=== PATIENT | male | born 1960 | race African-American/Black ===

== ENCOUNTER 2018-04-25 10:43 | Day surgery (SDC) | payer OTHER ==
[~2018-04-25] VITALS: Ht 172.7 cm; Wt 120.2 kg
[2018-04-25] VITALS (12 sets, daily range): BP systolic 112–131; BP diastolic 74–95
--- NOTE | 2018-04-25 07:06 | Pre-Procedure Note/Attestation ---
Pre-Procedure Note/Attestation Complete Prior to Procedure Planned Procedure: right Procedure Narrative: rt knee scope, medial meniscectomy and chondroplasty Indications for Procedure Pre-Operative Diagnosis: rt knee medial meniscus tear Attestation I attest that I discussed the nature of the procedure; its benefits; risks and complications; and alternatives (and the risks and benefits of such alternatives ), prior to the procedure, with the patient (or the patient's legal truck sales representative). I attest that, if there was a reasonable possibility of needing a blood transfusion, the patient (or the patient's legal truck sales representative) was given the [facility] standardized written summary, pursuant to the Karsten Isidra Blood Safety Act ([place] Health and Safety Code # 1645, as amended). I attest that I re-evaluated the patient just prior to the surgery and that there has been no change in the patient's H&P, except as documented below: none Meet Frank MD Apr 25, 2018 07:06
[~2018-04-25 10:43] MED LIST: ceFAZolin 1gm IVPB IVPB ONE; celeBREX 200mg Cap **SURGERY PATIENTS ONLY ORAL ONE; oxyCONTIN 20mg tab ORAL ONE
[2018-04-25] MEDS ORDERED: TERAZOSIN HCL5 MG PO (11:23)
[2018-04-25] MEDS ORDERED: PRAVASTATIN SOD20 M1 ORAL (11:23)
[2018-04-25] MEDS ORDERED: ASPIRIN81 MG ORAL (11:23)
[2018-04-25] MEDS ORDERED: BENAZEPRIL HCL10 MG ORAL (11:23)
[2018-04-25] MEDS ORDERED: celeBREX 200mg Cap **SURGERY PATIENTS ONLY ORAL ONE (11:34)
[2018-04-25] MEDS ORDERED: oxyCONTIN 20mg tab ORAL ONE (11:34)
[2018-04-25] MEDS ORDERED: LR 1000ml 1,000 ML IVLG SCH (12:46)
--- NOTE | 2018-04-25 12:52 | Anethesia Preoperative Eval ---
Anesthesia Pre-op PMH/ROS General Date of Evaluation: Apr 25, 2018 Time of Evaluation: 13:36 Anesthesiologist: Adarsh ASA Score: ASA 3 Mallampati Score Class I : Soft palate, uvula, fauces, pillars visible Class II: Soft palate, uvula, fauces visible Class III: Soft palate, base of uvula visible Class IV: Only hard plate visible Mallampati Classification: Class III Surgeon: Monika Diagnosis: R Knee Pain Surgical Procedure: R Knee Arthroscopy Anesthesia History: none Family History: no anesthesia problems Allergies: Coded Allergies: No Known Allergies (Unverified , 04/19/18) Medications: see eMAR Patient NPO?: Yes Past Medical History Cardiovascular: Reports: HTN, other - HL Other: obesity - BMI 43 PSxH Narrative: Appendectomy Anesthesia Pre-op Phys. Exam Physician Exam Last Vital Signs Date Time Temp Pulse Resp B/P (MAP) Pulse Ox O2 Delivery O2 Flow Rate FiO2 04/25/18 11:42 97.5 62 18 131/88 97 Room Air Constitutional: NAD Neurologic: CN 2-12 intact Cardiovascular: RRR Respiratory: CTA Gastrointestinal: S/NT/ND Airway Exam Mallampati Score: Class III MO: limited ROM: limited Teeth: missing, intact Anesthesia Pre-op A/P Risk Assessment & Plan Assessment: ASA 3 Plan: GA, SED Status Change Before Surgery: No Pre-Antibiotics Dru Grams Ancef IV Given Within 1 Hr of Incision: Yes Time Given: 13:41 Christophe Zamora MD Apr 25, 2018 12:52
--- NOTE | 2018-04-25 12:53 | Immediate Post-Op Evaluation ---
Immediate Post-Op Evalulation Immediate Post-Op Evalulation Procedure: R Knee Arthroscopy Date of Evaluation: Apr 25, 2018 Time of Evaluation: 14:37 IV Fluids: 600 LR Blood Products: 0 Estimated Blood Loss: 3 Urinary Output: 0 Blood Pressure Systolic: 112 Blood Pressure Diastolic: 78 Pulse Rate: 78 Respiratory Rate: 16 O2 Sat by Pulse Oximetry: 94 Temperature (Fahrenheit): 97.1 Pain Score (1-10): 2 Nausea: No Vomiting: No Complications 0 Patient Status: awake, reacts, patent, none Hydration Status: adequate Dru Gram Ancef IV Given Within 1 Hr of Incision: Yes Time Given: 13:41 Christophe Zamora MD Apr 25, 2018 12:53
--- NOTE | 2018-04-25 12:54 | 48 Hour Post Anesthesia Eval ---
Post Anesthesia Evaluation Procedure: R Knee Arthroscopy Date of Evaluation: Apr 25, 2018 Time of Evaluation: 16:43 Blood Pressure Systolic: 124 0: 74 Pulse Rate: 66 Respiratory Rate: 18 Temperature (Fahrenheit): 97.5 O2 Sat by Pulse Oximetry: 97 Airway: patent Nausea: No Vomiting: No Pain Intensity: 2 Hydration Status: adequate Cardiopulmonary Status: Stable Mental Status/LOC: patient returned to baseline Follow-up Care/Observations: 0 Post-Anesthesia Complications: 0 Follow-up care needed: ready to discharge Christophe Zamora MD Apr 25, 2018 12:53
[2018-04-25] MEDS ORDERED: Propofol 200mg/20ml IV ONE (12:59)
[2018-04-25] MEDS ORDERED: Sodium Chloride 10ml vial INJ ONE (12:59)
[2018-04-25] MEDS ORDERED: Lidocaine 1% MPF 10mg/ml 5ml ONE (12:59)
[2018-04-25] MEDS ORDERED: Dexamethasone 4mg/ml vial ONE (12:59)
[2018-04-25] MEDS ORDERED: Atropine Sulfate 0.4mg/ml inj IVP PRN (13:00)
[2018-04-25] MEDS ORDERED: HYDROcodone/Acetamin 7.5/325 tab ORAL PRN (13:00)
[2018-04-25] MEDS ORDERED: Meperidine 50mg/ml Inj(FOR RIGORS ONLY) IVP PRN (13:00)
[2018-04-25] MEDS ORDERED: DiphenhydrAMINE 50mg/ml Inj IVP PRN (13:00)
[2018-04-25] MEDS ORDERED: fentaNYL 100 mcg/2 mL IV PRN (13:00)
[2018-04-25] MEDS ORDERED: Metoclopramide 10mg/2ml Inj IVP PRN (13:00)
[2018-04-25] MEDS ORDERED: LORazepam Inj 2mg/ml 1ml IV PRN (13:00)
[2018-04-25] MEDS ORDERED: Norco 5mg/325mg tab ORAL PRN ×2 (13:00→20:01)
[2018-04-25] MEDS ORDERED: Ketorolac 30mg Inj IV PRN ×2 (13:00)
[2018-04-25] MEDS ORDERED: Midazolam 2mg/2ml Inj IVP PRN (13:00)
[2018-04-25] MEDS ORDERED: Acetaminophen (Non formulary) 100 ML IV ONE (13:00)
[2018-04-25] MEDS ORDERED: Hydromorphone 0.5mg/0.5ml inj IVP PRN (13:00)
[2018-04-25] MEDS ORDERED: oxyCODONE HCL/Acetaminophen 5/325mg ORAL PRN (13:00)
[2018-04-25] MEDS ORDERED: fentaNYL 100 mcg/2 mL IV ONE (13:06)
[2018-04-25] MEDS ORDERED: Ropivacaine 5mg/ml Vial 30ml INJ ONE (13:23)
[2018-04-25] MEDS ORDERED: NS Irrig 4000ml IRRIG ONE (13:36)
[2018-04-25] MEDS ORDERED: LR 1000ml ONE (13:36)
--- NOTE | 2018-04-25 14:09 | Brief Operative Note ---
Immediate Post Operative Note Operative Note Chief Complaint: rt knee pain Pre-op Diagnosis: rt knee medial meniscus tear Procedure: rt knee scope, medial meniscectomy, chondroplasty Post-op Diagnosis: same as pre-op Findings: consistent w/pre-op dx studies Surgeon: md sunday Qualitative Field Project Manager: shantell diane Anesthesiologist: md lee Anesthesia: general Specimen: none Complications: none Condition: stable Fluids: ns Estimated Blood Loss: minimal Drains: none Implant(s) used?: No Adenike Diane Apr 25, 2018 14:09
[2018-04-25] MEDS ORDERED: Tylenol #3 tab (300mg/30mg) ORAL PRN (20:01)
[2018-04-25] MEDS ORDERED: D5 1/2NS 1,000 ML IV SCH (20:01)
[2018-04-25] MEDS ORDERED: HYDROmorphone 1mg/ml Carpuject SUBQ PRN (20:01)
--- NOTE | 2018-04-26 02:15 | Operative Note - Dictated ---
DATE OF OPERATION: 04/25/2018 PREOPERATIVE DIAGNOSIS: Right knee complex tear of the posterior horn and body of the medial meniscus. POSTOPERATIVE DIAGNOSES: 1. Right knee 8 x 10 mm chondral damage of the central trochlear groove with some unstable chondral flaps. 2. Right knee free edge tear of the posterior horn and body of the lateral meniscus involving 15% of the lateral meniscus. 3. Right knee complex tear of the posterior horn and body of the medial meniscus involving 35% posterior horn and body of the medial meniscus. 4. Right knee diffuse chondral damage over the medial femoral condyle and tibial plateau measuring 2 x 3 cm on the femoral side and 1 x 1 cm on the tibial side. PROCEDURE: 1. Right knee arthroscopy and extensive intra-articular shaving. 2. Right knee patellofemoral chondroplasty with resection of unstable and loose chondral flaps. 3. Right knee partial lateral meniscectomy involving 15% of the lateral meniscus. 4. Right knee partial medial meniscectomy involving 35% posterior horn and body of the medial meniscus. 5. Right knee medial femoral chondroplasty. 6. Right knee resection of multiple loose fragments of cartilage that was floating around the knee. SURGEON: Meet Frank M.D. AUTOMATION ENGINEER: Adenike Clay PA-C. ANESTHESIOLOGIST: Christophe Zamora M.D. ANESTHESIA: LMA anesthesia. TOURNIQUET TIME: 25 minutes. EBL: Minimal. COMPLICATIONS: None. SURGICAL INDICATION: The patient is a 58-year-old male who sustained the above injury to his knee. The patient was treated non-operative initially, but this did not alleviate the patients symptoms. Therefore, after discussing all non-surgical and surgical options, and discussing all foreseeable risk and benefits of surgery, the patient opted for surgical treatment as described above. PATIENT POSITIONING: Patient was brought to the operating room table and placed supine. All pressure points were well padded. General Anesthesia was induced and a well padded tourniquet was placed on the thigh. The lateral post was placed and positioned to allow for opening of the medial compartment of the knee without placing pressure over the fibular head. Patients entire leg was prepped and draped in the usual sterile fashion. Time out was performed and preop abx was given and after exsanguinating the lower extremity, the tourniquet was inflated to 275 mm of mercury. EXAMINATION OF THE KNEE UNDER ANESTHESIA: Before prepping and draping the knee and while the patient was relaxed under general anesthesia, the knee was examined for ROM, and anterior and posterior, medial and lateral, posterolateral, and posteromedial instability. Pivot shift testing was performed. There was no evidence of loss of motion or instability and the pivot shift testing was negative. PORTAL PLACEMENT: The lateral portal was placed with the knee flexed to 90 degrees at the level of inferior border of the patella in line with the lateral border of the patella. A cm skin incision was made with an eleven blade, and using a blunt obturator, the capsule was gently penetrated. Sterile saline solution was then infused inside the knee with the aid of a pump set at 35 mm mercury pressure. Under direct visualization, placement of the medial portal was preliminary judged using a spinal needle, and it was subsequently established using the same technique as the lateral portal. Care was given not to injure the cutaneous branches of the medial Saphenous nerve or the subcutaneous veins. DIAGNOSTIC ARTHROSCOPY: The suprapatellar patellar pouch was visualized. There was no evidence of scar tissue or loose fragments. The medial and lateral patellar facets and trochlear groove articular cartilage was visualized. There was some chondral damage over the medial lateral patellar facet and over the central trochlear groove measuring 8 x 10 mm. The medial plica shelf and the corresponding medial femoral condyle articular cartilage were visualized. There was no significantly thickening of the medial plica shelf and there were no "kissing" lesion over the medial femoral condyle. The lateral gutter and the posterolateral corner of the knee were visualized. There were no loose bodies, and the popliteus tendon and other structures of the posterolateral corner of the knee were intact intra-articularly. At this point, the knee was placed in the figure of four position and the lateral compartment was entered. The lateral femoral condyle, lateral tibial plateau, and the anterior, body, and the posterior horn of the lateral meniscus were visualized and probed. The articular surfaces were intact and devoid of articular cartilage damage. There was a free edge tear of the posterior horn and body of the lateral meniscus involving 15% of the lateral meniscus. The knee was then placed at 90 degree and the ACL and PCL were visualized and probed. The ACL was completely intact on visualization and probing, and it had excellent tension. The PCL was completely intact on visualization and probing and it had excellent tension. The medial compartment was then entered and the medial femoral condyle, medial tibial plateau, and the anterior, body, and the posterior horn of the medial meniscus were visualized and probed. There was some diffuse chondral damage over the femoral condyle measuring 2 x 3 cm. With the corresponding kissing lesion on tibial plateau measuring 1 x 1 cm. These were grade 4 chondromalacia. There was a complex tear of the posterior horn and body of the medial meniscus involving 35% posterior horn and body of the medial meniscus. The medial gutter was visualized. There was no evidence of defect or loose fragments. The scope was then brought back to the patella femoral compartment. OPERATIVE ARTHROSCOPY: At this point, all loose debris and fragments were removed with the use of suction motorized shaver. Specific attention was given to assure all visible loose fragments were irrigated out of the knee joint with pump inflow and cannula outflow system. For removal of loose body, the loose fragments were identified and visualized. Using combination of the shaver, suction, and graspers, these loose fragments were removed. These loose fragments measured approximately 5 to 7 mm. All debris left behind was removed with combination of may and graspers. For patella femoral chondroplasty, the frayed articular cartilage of the undersurface of the patella and the trochlear groove were debrided using a motorized shaver. Suction was used to pull in the loose fragments and flaps of the cartilage and to minimize damage to the intact and well attached portion of the cartilage. This allowed for a smooth surface for the articular cartilage gliding. For lateral meniscectomy, at this point, attention was given to the lateral meniscus. Using combination of baskets and may, the torn portion of the lateral meniscus was removed. Attention was given to remove all displaced and unstable portion of the lateral meniscus while maintaining as much of the functional portion of the meniscus as possible. Approximately, 15% of the posterior horn and body of the meniscus was removed in this fashion. The transition between the meniscectomy portion and intact portion of the meniscus was smoothed out with combination of small baskets and may. Excellent transition zone was obtained in this fashion. For medial meniscectomy, at this point, attention was given to the medial meniscus. Using combination of baskets and may, the torn portion of the medial meniscus was removed. Attention was given to remove all displaced and unstable portion of the medial meniscus while maintaining as much of the functional portion of the meniscus as possible. Approximately, 35% of the posterior horn and body of the medial meniscus was removed in this fashion. The transition between the meniscectomy portion and intact portion of the meniscus was smoothed out with combination of small baskets and may. Excellent transition zone was obtained in this fashion. For medial compartment chondroplasty, care was given to the area of cartilage damage in the medial compartment. The fayed and loose fragments of articular cartilage were debrided using a motorized shaver. Suction was used to pull in the loose fragments and flaps of the cartilage and to minimize damage to the intact and well attached portion of the cartilage. This allowed for smooth surfaces for the articular cartilage. CONDITION AT DISCHARGE FROM OPERATING ROOM: The knee was irrigated with copious amount of normal saline at the end of the procedure. The scope was removed and the water was drained. The skin edges were re-approximated and sterile dressing was applied. All lap count and instrument counts were correct. The patient tolerated the procedure well without complications and was taken to the recovery room in stable conditions. Meet Frank M.D. DR: GLORIA JOB#: [id number] CC:
== END 2018-04-25 16:20 | disposition home or self-care (01) ==
LOC: SUR 10:43
DX: M23.221 Derangement of posterior horn of medial meniscus due to old tear or injury, right knee (principal); M23.251 Derangement of posterior horn of lateral meniscus due to old tear or injury, right knee; M94.9 Disorder of cartilage, unspecified; M23.41 Loose body in knee, right knee; I10 Essential (primary) hypertension; E78.5 Hyperlipidemia, unspecified; E66.9 Obesity, unspecified; Z68.41 Body mass index [BMI] 40.0-44.9, adult; Z90.49 Acquired absence of other specified parts of digestive tract
CPT/HCPCS: 29880; J0690; J1100; J1885; J2250; J2405; J2704; J2795; J3010; 94003; 94150